=== PATIENT | female | born 1950 | race Caucasian/White ===

== ENCOUNTER → 2017-06-18 | Outpatient (CLI) | payer MEDICARE, OTHER, MEDICAID ==
[~2017-06-18] MED LIST: CATAPRES0.1 MG PO; INVEGA SUS156 MG/1 M IM; PRINIVIL OR ZES10 MG PO; ZYPREXA10 MG PO
== END | disposition disaster alternative care site (69) ==
LOC: GAMB 21:53
DX: R06.02 Shortness of breath (principal)
CPT/HCPCS: A0425; A0429